=== PATIENT | male | born 1970 | race Hispanic/Latino ===

== ENCOUNTER 2021-06-08 10:49 | Emergency (ER) | payer SELFPAY ==
--- NOTE | 2021-06-08 12:17 | RAD REPORT ---
EXAM DESCRIPTION: Rashawn Pa And Lat (2 Views)06/08/2021 11:39 am CLINICAL HISTORY: Shortness of breath COMPARISON: None FINDINGS: Mild to moderate left and mild right pulmonary opacities. The heart is normal size IMPRESSION: Bilateral pulmonary opacities probably pneumonia
[2021-06-08 13:02] LABS: Absolute Lymphocytes (CBC) 0.7 K/uL (0.7-4.9); Basophils % 0.2 % (0-1.3); Hematocrit 38.1 % (39.6-49.0); Lymphocytes % 22.3 % (15.3-44.8); MPV 9.3 fL (7.6-11.3); RBC Red Blood Cell Count 4.59 M/uL (4.33-5.43)
[2021-06-08 13:13] LABS: Protime INR 1.11
[2021-06-08 13:20] LABS: ALT/SGPT 105 U/L (12-78); AST/SGOT 85 U/L (15-37); Alkaline Phosphatase 65 U/L (45-117); BUN Blood Urea Nitrogen 7 mg/dL (7-18); Bicarbonate 29 mmol/L (21-32); Bilirubin Direct 0.2 mg/dL (0-0.2); Bilirubin Total 0.5 mg/dL (0.2-1.0); Ferritin 635.1 ng/mL (26-388); Glucose Level 95 mg/dL (74-106); Lipase 199 U/L (73-393); Potassium 3.7 mmol/L (3.5-5.1); Protein, Total 6.8 g/dL (6.4-8.2); Sodium Level 140 mmol/L (136-145); Troponin (Emerg Dept Use Only) < 0.02 ng/mL (0.0-0.045)
--- NOTE | 2021-06-08 13:58 | RAD REPORT ---
EXAM DESCRIPTION: CT - Chest For Pe Angio - 06/08/2021 1:40 pm CLINICAL HISTORY: sob COMPARISON: None. TECHNIQUE: Dynamically enhanced axial 3 mm thick images of the chest were obtained during administra tion of <100> mL Isovue 370 IV contrast. Coronal and oblique reconstruction images were generated and reviewed. Exam utilizes a protocol for optimal evaluation of pulmonary arterial tree. Maximum intensity projections 3D imaging was utilized All CT scans are performed using dose optimization technique as appropriate and may include automated exposure control or mA/KV adjustment according to patient size. FINDINGS: A pulmonary embolus is not seen. A thoracic aortic aneurysm is not noted. A pleural effusion is not seen. A pericardial effusion is not seen. Mild to moderate bilateral ground-glass opacities. IMPRESSION: Negative for a pulmonary embolism. Mild to moderate bilateral ground-glass opacities can be seen with Covid pneumonia
--- NOTE | 2021-06-08 14:16 | EDPHYS ---
Physician Documentation [facility] Name: John Villagomez Age: 51 yrs Sex: Male : 1970 Arrival Date: 06/08/2021 Time: 10:50 Bed 24 Private MD: ED Physician Daniel Carrion HPI: 06/08 16:07 This 51 yrs old Male presents to ER via Ambulatory with complaints of kb Shortness Of Breath - covid+. 16:07 The patient has shortness of breath at rest, with light activity. Onset: The kb symptoms/episode began/occurred 2 week(s) ago. Duration: The symptoms are continuous. The patient's shortness of breath is aggravated by exertion, is alleviated by nothing. Associated signs and symptoms: Pertinent positives: non-productive cough, Pertinent negatives: chest pain, productive cough, diaphoresis, dizziness, fever, hemoptysis, loss of consciousness, nausea, numbness in extremities, visual changes, vomiting. Severity of symptoms: At their worst the symptoms were mild moderate in the emergency department the symptoms are unchanged. The patient has not experienced similar symptoms in the past. The patient has not recently seen a physician. PT reports he has had COVID symptoms for 2 weeks, tested positive on 06/02/21. States most of his symptoms have resolved, but he is still short of breath, worse on exertion. Historical: - Allergies: 11:20 No Known Allergies; ca1 - Home Meds: 11:20 None [Active]; ca1 - PMHx: 11:20 None; ca1 - PSHx: 11:20 None; ca1 - Immunization history:: Client reports having NOT received the Covid vaccine. - Social history:: Smoking status: Patient denies any tobacco usage or history of. ROS: 16:06 Constitutional: Negative for fever, chills, and weight loss. kb 16:06 Respiratory: Positive for cough, dyspnea on exertion, shortness of breath, Negative for hemoptysis, orthopnea, pleurisy. 16:06 All other systems are negative. Exam: 16:06 Constitutional: This is a well developed, well nourished patient who is awake, alert, kb and in no acute distress. ENT: Moist Mucous membranes Cardiovascular: Regular rate and rhythm with a normal S1 and S2. No gallops, murmurs, or rubs. No pulse deficits. Respiratory: Respirations even and unlabored. No increased work of breathing, no retractions or nasal flaring. Abdomen/GI: Soft, non-tender. No distention Skin: Warm, dry with normal turgor. Normal color. MS/ Extremity: Pulses equal, no cyanosis. Neurovascular intact. Full, normal range of motion. Neuro: Awake and alert, GCS 15, oriented to person, place, time, and situation. Moves all extremities. Normal gait. Psych: Awake, alert, with orientation to person, place and time. Behavior, mood, and affect are within normal limits. 16:06 ECG was reviewed by the Attending Physician. Vital Signs: 11:18 BP 146 / 97; Pulse 67; Resp 18 S; Temp 98.3(O); Pulse Ox 99% on R/A; Weight 101.15 kg; ca1 Height 5 ft. 7 in. (170.18 cm) (R); Pain 0/10; 14:19 BP 136 / 97; Pulse 70; Resp 18; Pulse Ox 100% on R/A; zb 11:18 Body Mass Index 34.93 (101.15 kg, 170.18 cm) ca1 MDM: 12:12 Patient medically screened. kb 16:06 Data reviewed: vital signs, nurses notes. Data interpreted: Pulse oximetry: on room air kb is 100 %. Interpretation: normal. Counseling: I had a detailed discussion with the patient and/or guardian regarding: the historical points, exam findings, and any diagnostic results supporting the discharge/admit diagnosis, lab results, radiology results, the need for outpatient follow up, a family practitioner, to return to the emergency department if symptoms worsen or persist or if there are any questions or concerns that arise at home. 06/08 12:22 Order name: BMP kb 06/08 12:22 Order name: Blood Culture Adult (2) kb 06/08 12:22 Order name: C-Reactive Protein; Complete Time: 13:21 kb 06/08 12:22 Order name: CBC with Diff; Complete Time: 13:14 kb 06/08 12:22 Order name: D-Dimer; Complete Time: 13:21 kb 06/08 12:22 Order name: Ferritin; Complete Time: 13:21 kb 06/08 12:22 Order name: LFT's; Complete Time: 13:21 kb 06/08 12:22 Order name: Lactate; Complete Time: 13:21 kb 06/08 12:22 Order name: Lipase; Complete Time: 13:21 kb 06/08 12:22 Order name: PT-INR; Complete Time: 13:21 kb 06/08 12:22 Order name: Ptt, Activated; Complete Time: 13:21 kb 06/08 12:22 Order name: Troponin (emerg Dept Use Only); Complete Time: 13:21 kb 06/08 12:23 Order name: Basic Metabolic Panel; Complete Time: 13:21 EDMS 06/08 11:25 Order name: Chest Pa And Lat (2 Views) XRAY; Complete Time: 12:22 kb 06/08 12:22 Order name: EKG; Complete Time: 12:23 kb 06/08 12:22 Order name: Cardiac monitoring; Complete Time: 13:20 kb 06/08 12:22 Order name: Droplet/Contact Precautions; Complete Time: 13:20 kb 06/08 12:22 Order name: EKG - Nurse/Tech; Complete Time: 13:29 kb 06/08 12:22 Order name: IV Start; Complete Time: 13:20 kb 06/08 12:22 Order name: Labs collected and sent; Complete Time: 13:20 kb 06/08 12:22 Order name: O2 Per Protocol; Complete Time: 13:20 kb 06/08 12:22 Order name: O2 Sat Monitoring; Complete Time: 13:20 kb 06/08 13:19 Order name: CT Chest For PE Angio; Complete Time: 13:58 kb 06/08 14:14 Order name: Misc. Order: ambulate and recheck sats; Complete Time: 14:19 kb EC:06 Rate is 52 beats/min. Rhythm is regular. QRS [place] is Normal. TN interval is normal at kb 184 msec. QRS interval is normal at 92 msec. QT interval is normal at 464 msec. Administered Medications: No medications were administered Disposition Summary: 06/08/21 14:16 Discharge Ordered Location: Home kb Condition: Stable kb Diagnosis - Coronavirus infection, unspecified kb - Viral pneumonia, unspecified kb Followup: kb - With: Private Physician - When: 2 - 3 days - Reason: Recheck today's complaints, Continuance of care, Re-evaluation by your physician Followup: kb - With: Emergency Department - When: As needed - Reason: Worsening of condition Discharge Instructions: - Discharge Summary Sheet kb - Viral Respiratory Infection, [id number] kb - COVID-19 kb Forms: - Medication Reconciliation Form kb - Thank You Letter kb - Antibiotic Education kb - Prescription Opioid Use kb Signatures: Dispatcher [employer] Yohana Mathis, Katy Blake RN RN ca1
--- NOTE | 2021-06-08 14:16 | ER ---
Nurse's Notes [facility] Name: John Villagomez Age: 51 yrs Sex: Male : 1970 Arrival Date: 06/08/2021 Time: 10:50 Bed 24 Private MD: Diagnosis: Coronavirus infection, unspecified;Viral pneumonia, unspecified Presentation: 06/08 11:18 Chief complaint: Patient states: Covid+ 06/02/2021. SOB still the same, all other ca1 symptoms like fever has been gone but still short of breath specially when I talk. Coronavirus screen: Client reports previous positive COVID test result. Date of collection: June 02, 2021 Staff notified of need for isolation. Ebola Screen: Patient negative for fever greater than or equal to 101.5 degrees Fahrenheit, and additional compatible Ebola Virus Disease symptoms Patient denies exposure to infectious person. Patient denies travel to an Ebola-affected area in the 21 days before illness onset. No symptoms or risks identified at this time. Initial Sepsis Screen: Does the patient meet any 2 criteria? No. Patient's initial sepsis screen is negative. Does the patient have a suspected source of infection? No. Patient's initial sepsis screen is negative. Risk Assessment: Do you want to hurt yourself or someone else? Patient reports no desire to harm self or others. Onset of symptoms was June 08, 2021. 11:18 Method Of Arrival: Ambulatory ca1 11:18 Acuity: REBECA 3 ca1 Historical: - Allergies: 11:20 No Known Allergies; ca1 - Home Meds: 11:20 None [Active]; ca1 - PMHx: 11:20 None; ca1 - PSHx: 11:20 None; ca1 - Immunization history:: Client reports having NOT received the Covid vaccine. - Social history:: Smoking status: Patient denies any tobacco usage or history of. Screenin:22 Abuse screen: Denies threats or abuse. Denies injuries from another. Nutritional zb screening: No deficits noted. Tuberculosis screening: No symptoms or risk factors identified. Fall Risk None identified. Assessment: 13:20 General: Appears in no apparent distress. uncomfortable, Behavior is calm, cooperative, zb appropriate for age, Reports chills for feeling ill for > 3 days, fatigue for >3 days. Pain: Denies pain. Neuro: Level of Consciousness is awake, alert, obeys commands, Oriented to person, place, time, situation. Cardiovascular: Capillary refill < 3 seconds Patient's skin is warm and dry. Rhythm is regular. Respiratory: Reports shortness of breath at rest cough that is Airway is patent Respiratory effort is even, unlabored, Onset: The symptoms/episode began/occurred 7 days ago , the patient has mild shortness of breath. GI: Bowel sounds present X 4 quads. Reports diarrhea. EENT: Reports nasal congestion nasal discharge. Derm: Skin is intact, is healthy with good turgor. Musculoskeletal: Range of motion: intact in all extremities. 14:06 Reassessment: Patient appears in no apparent distress at this time. Patient and/or zb family updated on plan of care and expected duration. Pain level reassessed. Patient is alert, oriented x 3, equal unlabored respirations, skin warm/dry/pink. ECP at bedside discussing care. 14:20 Reassessment: patient ambulated back in forth in room stats remained 98-100%. No zb saturation at this time. Respiratory: Breath sounds with crackles bilaterally. 14:35 Reassessment: patient ambulated out. no c/o at this time. gait even and steady. zb Vital Signs: 11:18 BP 146 / 97; Pulse 67; Resp 18 S; Temp 98.3(O); Pulse Ox 99% on R/A; Weight 101.15 kg; ca1 Height 5 ft. 7 in. (170.18 cm) (R); Pain 0/10; 14:19 BP 136 / 97; Pulse 70; Resp 18; Pulse Ox 100% on R/A; zb 11:18 Body Mass Index 34.93 (101.15 kg, 170.18 cm) ca1 ED Course: 10:50 Patient arrived in ED. as 11:20 Triage completed. ca1 11:20 Arm band placed on right wrist. ca1 11:36 Chest Pa And Lat (2 Views) XRAY In Process Unspecified. EDMS 12:12 Yohana Harp FNP-C is PHCP. kb 12:12 Daniel Carrion MD is Attending Physician. kb 12:15 Barbara Garcia RN is Primary Nurse. zb 13:22 Patient has correct armband on for positive identification. Bed in low position. Call zb light in reach. Adult w/ patient. monitor car operator on. Pulse ox on. NIBP on. Warm blanket given. 13:22 Inserted saline lock: 20 gauge in right antecubital area, using aseptic technique. zb Blood collected. 13:40 CT Chest For PE Angio In Process Unspecified. EDMS 14:34 No provider procedures requiring assistance completed. IV discontinued, intact, zb bleeding controlled, No redness/swelling at site. Pressure dressing applied. Administered Medications: No medications were administered Outcome: 14:16 Discharge ordered by . inta 14:34 Discharged to home ambulatory, with family. zb 14:34 Condition: stable 14:34 Discharge instructions given to patient, family, Instructed on discharge instructions, follow up and referral plans. Demonstrated understanding of instructions, follow-up care. 14:35 Patient left the ED. zb Signatures: Dispatcher [employer] EDIN Yohana Harp, MONI CASAS-Jennifer Odom as Katy Astorga RN Barbara Vance RN RN jerald
[2021-06-08 14:51] VITALS: TEMP 98.3
[2021-06-08 14:52] VITALS: BP 136/97; O2SAT 100
--- NOTE | 2021-06-09 16:08 | EKG ---
Test Date: 2021-06-08 Test Time: 13:27:54 Paintings Conservator: SAMANTHA MEASUREMENT RESULTS: Intervals: Rate: 52 UT: 184 QRSD: 92 QT: 464 QTc: 431 [place]: P: 17 UT: 184 QRS: 47 T: 46 INTERPRETIVE STATEMENTS: Sinus bradycardia Otherwise normal ECG No previous ECG available for comparison Electronically Signed On 06-09-21 16:04:22 CDT by Pritesh Garcia
== END 2021-06-08 14:35 | disposition home or self-care (01) ==
LOC: ER 10:49
DX: U07.1 COVID-19 (principal); J12.82 Pneumonia due to coronavirus disease 2019
CPT/HCPCS: 36415; 71046; 71275; 80048; 80076; 82728; 83605; 83690; 84484; 85025; 85379; 85610; 85730; 86140; 87040; 93005; 99284; Q9967